=== PATIENT | female | born 1980 | race Caucasian/White ===

== ENCOUNTER 2019-04-11 22:02 | Emergency (ER) | payer SELFPAY ==
[2019-04-11] MEDS ORDERED: Lidocaine 2% PF 5 ML VIAL ONE (22:19)
[2019-04-11] MEDS ORDERED: Amoxicillin/Potassium Clav 875 MG TAB ONE (22:44)
== END 2019-04-11 22:55 | disposition home or self-care (01) ==
LOC: BURERS 22:02
DX: S81.852A Open bite, left lower leg, initial encounter (principal); W54.0XXA Bitten by dog, initial encounter
CPT/HCPCS: 12002; J2001